=== PATIENT | male | born 1995 | race Two or more races ===

== ENCOUNTER 2020-02-19 07:15 | Emergency (ER) | payer OTHER ==
[~2020-02-19] VITALS: Ht 170.2 cm; Wt 70.3 kg
[2020-02-19 07:28] VITALS: BP 139/92
== END 2020-02-19 09:31 | disposition left against medical advice (07) ==
LOC: ER 07:15
DX: R22.0 Localized swelling, mass and lump, head (principal); Z53.21 Procedure and treatment not carried out due to patient leaving prior to being seen by health care provider